=== PATIENT | female | born 1955 | race Caucasian/White ===

== ENCOUNTER → 2019-11-01 | Outpatient (REF) | payer MEDICARE, OTHER ==
[2019-11-01 17:24] LABS: CREATININE, URINE 68.7 MG/DL; MALB URINE SIEMENS 7.5 MG/L; MAU/CREAT RATIO 10.9 MCG/MG (0.0-30.0)
== END ==
LOC: M LAB REF 15:17
PROVIDERS: ATTEND Nurse Practitioner Family
DX: E11.22 Type 2 diabetes mellitus with diabetic chronic kidney disease (principal)

== ENCOUNTER → 2020-09-04 | Outpatient (REF) | payer MEDICARE, OTHER ==
[2020-09-04 18:38] LABS: CREATININE, URINE 48.3 MG/DL; MALB URINE SIEMENS 8.4 MG/L; MAU/CREAT RATIO 17.3 MCG/MG (0.0-30.0)
== END ==
LOC: M LAB REF 17:04
PROVIDERS: ATTEND Nurse Practitioner Family
DX: E11.22 Type 2 diabetes mellitus with diabetic chronic kidney disease (principal)